=== PATIENT | male | born 1990 | race Caucasian/White ===

== ENCOUNTER 2016-12-17 05:20 | Emergency (ER) | payer SELFPAY ==
[2016-12-17] MEDS ORDERED: KETOROLAC TROMETHAMINE 60 MG/2 ML VIAL IM ONE (05:49)
[2016-12-17] MEDS ORDERED: ORPHENADRINE CITRATE 60 MG/2ML IM ONE (05:49)
--- NOTE | 2016-12-17 06:39 | ED Physician Documentation ---
Low Back Pain - HISTORIAN Historian: patient - HPI Stated Complaint: LBP Chief Complaint: Low Back Pain/ Injury Additional Information: Pt is a 26 yo male that presents with low back pain for the past two days. Pt states he was working out and doing box jumps and didn't get far enough up on the box so he jumped off backwards landing straight legged on the concrete floor , jarring his back. Denies actually falling but states since then his low back has been tense and hurts. He does report occasional symptoms of sciatica down the back of his left leg to his knee. Denies bowel/bladder incontinence. Has taken Ibuprofen with minimal relief. Onset: days ago Duration: continues in ED Recent Injury: Yes Context: near-fall Where: work Severity: mild Quality: dull Associated Symptoms: denies: constipation, incontinence, problems urinating, difficulty walking, numbness, weakness Relieved By: remaining still - ROS CONST: no problems CVS/RESP: none EYES/ENT: none MS/SKIN/LYMPH: leg pain, back pain Neuro/Psych: none - PAST HX Past History: denies: back injury, back pain, compression fracture(s) Surgeries/Procedures: none Allergies/Adverse Reactions: Allergies Allergy/AdvReac Type Severity Reaction Status Date / Time No Known Allergies Allergy Verified 12/17/16 05:37 Home Medications: Ambulatory Orders Medication Instructions Recorded NK [NK] 12/17/16 - SOCIAL HX Smoking History: non-smoker - FAMILY HX Family History: no significant history - VITAL SIGNS Vital Signs: Vital Signs Temp Pulse Resp BP Pulse Ox 58 L 16 131/62 98 12/17/16 05:20 12/17/16 05:20 12/17/16 05:20 12/17/16 05:20 - REVIEWED ASSESSMENTS Nursing Assessment Reviewed: Yes Vitals Reviewed: Yes Progress - Progress Progress: Xrays negative for fracture. I will place the patient on weight restriction of 50lbs for the next two weeks then he needs to re-evaluated. Discussed this with the patient and he voices understanding and is agreeable. ED Results Lab/Radiology - Radiology Radiology Impressions: T spine - No fracture L Spine - No fracture - Orders Orders: ED Orders Category Date Time Status L SPINE 2 OR 3 VIEWS [RAD] Stat Exams 12/17/16 Ordered T SPINE 3 VIEWS [RAD] Stat Exams 12/17/16 Ordered Ketorolac Tromethamine [Toradol] Med 12/17/16 05:49 Discontinued 60 mg IM NOW ONE Orphenadrine Citrate [Norflex] Med 12/17/16 05:49 Discontinued 60 mg IM NOW ONE Low Back Pain/Injury - Physical Exam General Appearance: no acute distress EENT: ENT inspection normal Neck: non-tender, painless ROM Resp/CVS: breath sounds nml, heart sounds nml, no resp. distress, reg. rate & rhythm Abdomen: non-tender Back: vertebral point-tendernes (midline bony tenderness around T10-11.), muscle spasm (Bilaterally in the lower thoracics and throughout the lumbar paraspinal musculature.) Straight Leg Raising: Negative Right, Positive Left Neuro/Psych: oriented x3 Skin: warm/dry Discharge Clincal Impression: Low back pain Qualifiers: Chronicity: acute Back pain laterality: bilateral Sciatica presence: unspecified whether sciatica present Qualified Code(s): M54.5 - Low back pain Referrals: Primary Doctor,No [Primary Care Provider] - 2 Days Additional Instructions: Take medications as prescribed I have placed you on a 50lb weight restriction for the next two weeks. Continue light stretching as directed. Follow up with your PCP/Medic in the next 7-10 days. Return to the ED should your symptoms worsen or not improve. Home Medications: Ambulatory Orders NK [NK] 12/17/16 Condition: Good Disposition: 01 HOME, SELF-CARE Decision to Admit: NO Decision Time: 06:38
[2016-12-17 06:50] VITALS: BP 128/64
--- NOTE | 2016-12-17 07:06 | Diagnostic Imaging Report ---
JAYCEE WAYNE ED [facility] [address] [facility] [address] [address] Report Submission Date: Dec 17, 2016 6:24:56 AM CDT Patient Study Name: ROSIE BENNETT Date: Dec 17, 2016 6:00:39 AM CDT Modality Type: CR Gender: M Description: SPINE : 86 Institution: [facility] Physician: JAYCEE WAYNE ED Thoracic spine, AP, lateral and swimmer's views History: Back pain Findings: No fracture, subluxation or abnormal bone production or destruction is identified. The vertebral bodies and intervertebral disc spaces are of normal height. Impression: Normal. Electronically signed on Dec 17, 2016 6:24:56 AM CDT by: Conner ORTA
--- NOTE | 2016-12-17 07:07 | Diagnostic Imaging Report ---
JAYCEE WAYNE ED [facility] [address] [facility] [address] [place] [address]. [id number] Report Submission Date: Dec 17, 2016 6:26:03 AM CDT Patient Study Name: ROSIE BENNETT Date: Dec 17, 2016 6:02:03 AM CDT Modality Type: CR Gender: M Description: SPINE : 86 Institution: [facility] Physician: JAYCEE WAYNE ED Lumbar spine, AP and lateral, 3 views History: Back pain Findings: No fracture, subluxation or abnormal bone production or destruction is identified. The vertebral bodies and intervertebral disc spaces are of normal height. Impression: Normal. Electronically signed on Dec 17, 2016 6:26:03 AM CDT by: Conner ORTA
== END 2016-12-17 06:40 | disposition home or self-care (01) ==
LOC: ED 05:20
DX: M54.5 Low back pain (principal)
CPT/HCPCS: 72072; 72100; J1885; J2360; 96372; 99283